=== PATIENT | male | born 1960 | race Caucasian/White ===

== ENCOUNTER → 2017-09-06 | Outpatient (CLI) | payer OTHER ==
[~2017-09-06] VITALS: Ht 185.4 cm; Wt 122.5 kg
[~2017-09-06] MED LIST: IBUPROFEN 200200 M1 PO
--- NOTE | ~2017-09-06 | P ---
[facility] [place] [address] [place] [address] PROCEDURE REPORT Name: MYRIAM WORRELL Room #: REG [facility]#: [id number] Admission: 09/06/17 Attend Phys: Myriam Drew MD Discharge: Date of : 64 Report #: [id number] THIS REPORT FOR: //name// CC: Dr. Maggie Sharpe FAM unknown Myriam Drew BRIEF HISTORY: The patient is a 57-year-old male for his first average risk screening colonoscopy. PREOPERATIVE DIAGNOSIS: Average risk screening colonoscopy. POSTOPERATIVE DIAGNOSIS: Normal average risk screening colonoscopy. MEDICATIONS: Deep sedation with propofol per anesthesia. SPECIMEN: None. ESTIMATED BLOOD LOSS: None. PROCEDURE: Colonoscopy to cecum and terminal ileum. FINDINGS: Prior to propofol sedation, the procedure of colonoscopy discussed with the patient as well as potential risks, benefits, and complications. He indicates he understands and desires to proceed. With the patient in left lateral decubitus position, digital examination was completed, which revealed no abnormalities. Subsequently, the [employer] video colonoscope was introduced in the rectum, advanced under direct vision to the cecum. Done with minimal difficulty. Cecum was identified by the ileocecal valve and the appendiceal orifice. I was able to visualize the distal segment of terminal ileum, which was inspected and noted to be unremarkable. At that point, the scope was slowly withdrawn and careful circumferential views obtained including retroflexing the scope in the ascending colon. Upon slow withdrawal of the scope, the prep was noted to be good. The mucosa was within normal limits, normal vascular pattern, normal light reflex. As we withdrew the scope through the colon, he was noted to have normal colonic mucosa throughout. No neoplastic lesions were seen. The scope was withdrawn into the rectum and examination of the rectum on end view as well as retroflexed views revealed normal mucosa. Scope was withdrawn and the patient tolerated the procedure well. CONDITION OF THE PATIENT UPON DISCHARGE: Following procedure, the patient drowsy, aroused, and conversant and will be discharged home when fully ambulatory. INSTRUCTIONS TO THE PATIENT AND FAMILY AT THE TIME OF DISCHARGE: No neoplastic [facility] [address] [place] [address] PROCEDURE REPORT Name: MYRIAM WORRELL [id number] Admission: 09/06/17 Attend Phys: Myriam Drew MD Discharge: Date of : 64 Report #: [id number] lesions were seen on today's examination. He is considered to be average risk. Suggest followup colon exam in 10 years for screening or sooner if he should develop any symptoms warranting colonoscopy. The patient's first colonoscopy withdrawal time from the cecum was 13 minutes 24 seconds. <ELECTRONICALLY SIGNED> By: Myriam Drew MD 09/09/17 [id number] Myriam Drew MD /nt
== END | disposition home or self-care (01) ==
LOC: GI 07:29
DX: Z12.11 Encounter for screening for malignant neoplasm of colon (principal); Z98.890 Other specified postprocedural states; Z87.891 Personal history of nicotine dependence
CPT/HCPCS: 62110; 62900